=== PATIENT | female | born 1950 | race Caucasian/White ===

== ENCOUNTER 2016-11-13 13:31 | Inpatient (IN) | payer MEDICARE, OTHER ==
[~2016-11-13] VITALS: Ht 180.3 cm; Wt 73.6 kg
[2016-11-13 14:09] LABS: BASOPHILS 0.6 % (0.0-2.0); EOSINOPHILS 0.9 % (0-7); HEMOGLOBIN 15.2 g/dL (12-16); IMMATURE GRANULOCYTES 0.2 % (0-5); LYMPHOCYTES 31.6 % (15-50); MCV 90.7 fL (80.0-100.0); MEAN PLATELET VOLUME 9.7 fL (7.4-10.4); MONOCYTES 9.4 % (2-11); NEUTROPHILS 57.3 % (40-80); PLATELET COUNT 222 10x3/uL (130-400); RBC 5.07 10x6/uL (4.00-5.40); RDW 13.4 % (11.5-14.5); WBC 6.6 10x3/uL (4.8-10.8)
[2016-11-13 14:39] LABS: ALBUMIN 3.9 g/dL (3.4-5.0); ANION GAP 12.3 mmol/L (8-16); APPEARANCE CLEAR (CLEAR); BACTERIA MODERATE /hpf (NONE SEEN); BILIRUBIN NEGATIVE (NEGATIVE); BILIRUBIN - DIRECT 0.09 mg/dL (0.00-0.30); BILIRUBIN - INDIRECT 0.25 mg/dL (0.00-1.00); BILIRUBIN - TOTAL 0.34 mg/dL (0.2-1.3); CALCIUM 9.2 mg/dL (8.5-10.1); CARBON DIOXIDE 30.7 mmol/L (21.0-32.0); COLOR DK YELLOW (YELLOW); EPITHELIAL CELLS 0-5 /hpf (0-5); GLUCOSE NEGATIVE (NEGATIVE); KETONE NEGATIVE (NEGATIVE); LEUKOCYTE ESTERASE 1+ (NEGATIVE); MUCUS >1+ /lpf (NONE SEEN); NITRITE NEGATIVE (NEGATIVE); PROTEIN NEGATIVE (NEGATIVE); PROTEIN - SERUM 7.2 g/dL (6.4-8.2); RED CELLS - URINE 0-5 /hpf (0-5); SPECIFIC GRAVITY 1.025 (1.005-1.020); T4 THYROXIN - FREE 0.86 ng/dL (0.76-1.46); THYROID STIMULATING HORMONE 2.58 uIU/mL (0.36-3.74); UROBILINOGEN NORMAL (NORMAL); WHITE CELLS - URINE 0-5 /hpf (0-5)
--- NOTE | 2016-11-13 14:50 | NUR ---
ALERT AND ORIENTED X4. DENIES SOB OR PAIN. VERY TEARFUL. AMBULATORY. GAIT STEADY. REFUSE SCDs. IV SITED RT HAND 22G SUCCESSFUL 1sT ATTEMPT. CONTINUE ADMISSION PROCESS. BED LOCKED AND LOW. CALL LIGHT IN REACH. TWO SIDERAILS UP.
[2016-11-13] MEDS ORDERED: ESTRACE1 MG PO (14:58)
[2016-11-13] MEDS ORDERED: ZOCOR5 MG PO (14:59)
[2016-11-13] MEDS ORDERED: CETIRIZINE HCL5 MG PO (15:00)
[2016-11-13] MEDS ORDERED: BUPROPION HCL100 MG PO (15:01)
[2016-11-13] MEDS ORDERED: GEODON40 MG PO (15:05)
[2016-11-13] MEDS ORDERED: ZANTAC150 MG PO (15:06)
[2016-11-13] MEDS ORDERED: ATIVAN0.5 MG PO (15:07)
[2016-11-13] MEDS ORDERED: MELATONIN 3 MG1 TAB PO (15:08)
[2016-11-13 16:00] VITALS: BP 137/73
[2016-11-13 17:50] VITALS: BP 137/73; Ht 180.3 cm; Wt 73.6 kg
[2016-11-13 20:00] VITALS: BP 137/72
[2016-11-14] VITALS: BP 130/68
[2016-11-14 04:00] VITALS: BP 116/62
--- NOTE | 2016-11-14 05:52 | NUR ---
NURSE ROUNDS 22:00 - PT LYING IN BED ON LEFT SIDE, DARK ROOM, TEARFUL, EMOTIONAL, CRYING UNCONTROLLABLY. PT IS ALERT, ORIENTED, DENIES ANY ACUTE NEEDS, DENIES SUICIDAL IDEATIONS AT THIS TIME, AND VERBALLY PROMISES ME THAT SHE HAS NO INTENTIONS OF HURTING HERSELF AND PROMISES ME THAT SHE WILL NOT DO ANY HARM TO HERSELF. CONTINUE TO MONITOR CLOSELY.
[2016-11-14 08:54] VITALS: BP 116/51
[2016-11-14 12:15] VITALS: BP 124/76
[2016-11-14 16:08] VITALS: BP 156/78
[2016-11-14 21:18] VITALS: BP 138/81
--- NOTE | 2016-11-15 00:07 | NUR ---
NURSE ROUNDS 22:00 - PT AWAKE, ALERT, ORIENTED, SITTING UP IN BED, LIGHT ON, TV ON, PUZZLE BOOK IN HAND. PT SMILED WHEN I ENTERED, AND HAD SEVERAL QUESTIONS ABOUT HER NEW TX PLAN. WE DISCUSSED HER NEW MEDICATIONS, THE IMPORTANCE OF BEING CONSISTENT WITH TAKING THEM AT THE SAME TIME EACH DAY, COMPLYING WITH OUTPT TX, INCLUDING WEEKLY LAB X 1 MONTH UNTIL THERAPEUTIC LITHIUM LEVEL IS ACHIEVED. WE DISCUSSED DR. GARCIA OUTPT PLAN IN WHICH SHE WAS PLEASED WITH AND PT STATES THAT SHE IS ALREADY FEELING BETTER SINCE BEGINNING THE NEW MEDICATIONS. PT STATES SHE HAS HAD ONLY ONE TEARFUL EPISODE TODAY AND THAT WAS WHEN SHE WAS TALKING WITH DR. BURGOS. PT DENIES ANY NEEDS. CONTINUE TO MONITOR CLOSELY. I SPENT 20 MINUTES OR MORE DOING TEACHING ON THE NEW MEDICATIONS, OUTPT TX, AND ALL OTHER QUESTIONS PT HAD. I HAVE ENCOURAGED PT TO WRITE DOWN ANY QUESTIONS SHE MAY HAVE FOR HER PHYSICIANS FOR HER OUTPT FOLLOW UP.
[2016-11-15 01:12] VITALS: BP 130/67
--- NOTE | 2016-11-15 05:01 | NUR ---
PT LYING IN BED ON LEFT SIDE, EYES CLOSED, RESPIRATIONS EVEN AND UNLABORED. CONTINUE TO MONITOR CLOSELY. BED LOW, CALL LIGHT IN REACH, SIDE RAILS X 2, HOB FLAT.
[2016-11-15 05:21] VITALS: BP 143/59
--- NOTE | 2016-11-15 08:30 | NUR ---
RECEIVED PT REPORT. WILL CONTINUE PLAN OF CARE. NO OTHER NEEDS AT THIS TIME. WILL CONTINUE PLAN OF CARE.
[2016-11-15 08:55] VITALS: BP 114/59
--- NOTE | 2016-11-15 10:01 | NUR ---
PT IS ALERT. ASSESSMENT DONE PER FLOWSHEET. NO CO PAIN AT THIS TIME. WILL CONTINUE TO MONTIOR.
[2016-11-15 12:18] VITALS: BP 166/74
[2016-11-15] MEDS ORDERED: LITHIUM CARBON300 M3 PO (12:46)
[2016-11-15] MEDS ORDERED: LEXAPRO20 MG PO (12:49)
--- NOTE | 2016-11-15 13:33 | NUR ---
NO SS OF DISTRESS AT THIS TIME. WILL CONTINUE TO MONTIOR.
--- NOTE | 2016-11-15 14:41 | NUR ---
CM WAS NOTIFIED BY HILDA ROBB THAT PT WAS SEEN BY DR BURGOS AND HE ASKED THAT INTAKE APPOINTMENT BE MADE WITH DR VILLALOBOS PRIOR TO DC. CM PLACED CALL TO DR VILLALOBOS'S OFFICE AND OFFICE MESSAGE STATED THAT CLINIC IS CURRENTLY CLOSED AND WILL NOT BE OPEN AGAIN UNTIL SUNDAY AT 9:00 AM. IS THEREFORE UNABLE TO GET APPOINTMENT TIME AND DATE FOR PATIENT UNTIL Sunday11/17/16. CM PLACED CALL TO [facility] TO ATTEMPT TO SPEAK TO DR BURGOS REGARDING ABOVE. DR BURGOS WAS NOT ON CAMPUS AND PETRA SPOKE WITH YANICK MORENO RN MANAGER OF [facility] TO INFORM OF [facility]. YANICK SPOKE WITH DR BURGOS VIA TELEPHONE AND HE INFORMED YANICK MORENO THAT THE CLINIC PHONE NUMBER FOR DR VILLALOBOS MUST BE GIVEN TO PATIENT PRIOR TO HER DISCHARGE SO SHE HAS NUMBER TO CALL IN CASE OF EMERGENCY, AND THEN SHE CAN BE DISCHARGED. DR BURGOS ASKED THAT CM CALL PATIENT WITH HER INTAKE APPT. DATE/TIME WHEN DR VILLALOBOS'S OFFICE RETURNS CM'S CALL. PETRA PROVIDED PT WITH DR VILLALOBOS'S OFFICE PHONE NUMBER OF [phone] DR VILLALOBOS'S OFFICE MESSAGE PROVIDED EMERGENCY NUMBER FOR ON-CALL THERAPIST OF [phone] AND EMERGENCY NUMBER WAS ALSO GIVEN TO PATIENT PRIOR TO DISCHARGE. PETRA INFORMED PATIENT THAT SHE WILL BE NOTIFIED WHEN INTAKE APPT. IS KNOWN.
--- NOTE | 2016-11-15 15:18 | NUR ---
Patient Name: UZIEL GIORDANO Admission Status: Elective Accout number: [id number] Admission Date: 11-13-2016 : 1950 Admission Diagnosis:DEHYDRATION Attending: VALENTINE Current LOS: 2 Anticipated DC Date: 11-15-2016 Planned Disposition: Outpatient clinics\services (Programs) Primary Insurance: MEDICARE A & B PLANNED EXTERNAL PROVIDER: OUTPATIENT WITH DR. VILLALOBOS Discharge Planning Comments: * Is the patient Alert and Oriented? Yes 0 * How many steps to enter\exit or inside your home? 5-6 0 * PCP DR. NASSAR 0 * Pharmacy [facility] IN [place] 0 * Preadmission Environment Home with Family 0 * ADLs Independent 0 * Equipment None 0 * Other Equipment NO MEDICAL EQUIPMENT PROVIDER PREFERENCE 0 * List name and contact numbers for known caregivers / representatives who currently or will assist patient after discharge: FAUZIA GIORDANO, SPOUSE, 0 * Community resources currently utilized None 0 * Please name any agencies selected above. NONE 0 * Additional services required to return to the preadmission environment? Yes * Can the patient safely return to the preadmission environment? Yes 0 * Has this patient been hospitalized within the prior 30 days at any hospital? No 0 CM MET WITH PT IN ROOM TO DISCUSS DISCHARGE PLANNING AND NEEDS. PT REPORTS LIVING AT HOME INDEPENDENTLY WITH HER SPOUSE. PT HAS NO MEDICAL EQUIPMENT AND NO OUTSIDE SERVICES ASSISTING IN THE HOME. CM DISCUSSED AVAILABILITY OF HOME HEALTH, REHAB SERVICES AND MEDICAL EQUIPMENT. PT DENIES DISCHARGE NEEDS, REPORTS HER FRIEND WILL PICK HER UP FOR DISCHARGE HOME HER SPOUSE IS HOME AFTER HAVING SURGERY ON HIS TOE. IMPORTANT MESSAGE FROM MEDICARE PROVIDED AND EXPLAINED. CM DISCUSSED DOCTOR'S ORDER TO ARRANGE OUTPATIENT APPOINTMENT WITH DR. VILLALOBOS FOR PT TO FOLLOW UP. PT WAS AWARE OF THE DOCTORS RECOMMENDATION AND WILL FOLLOW UP DIRECTED. CM PROVIDED PT WITH DR. VILLALOBOS'S CLINIC ADDRESS AND PHONE NUMBER, RN PETRA CORTES WAS UNABLE TO MAKE THE APPOINTMENT TODAY DR. VILLALOBOS'S OFFICE IS CLOSED. PT TO BE CONTACTED BY PETRA OR DR. VILLALOBOS REGARDING OUTPATIENT APPOINTMENT. PT DENIES DISCHARGE NEEDS. Supervisor Network Control Operators: Adalberto Mcfarland
== END 2016-11-15 15:35 | disposition home or self-care (01) | DRG 641 ==
LOC: D.M2 13:31 → D.SDCHOLD 13:31 → D.M2 13:36
PROVIDERS: ADMIT Family Medicine
DX: E86.0 Dehydration (principal); F31.81 Bipolar II disorder

== ENCOUNTER 2017-04-17 11:00 | Outpatient (CLI) | payer MEDICARE, OTHER ==
[2016-11-13 17:50] VITALS: BMI 22.6
[~2017-04-17 11:00] MED LIST: ATIVAN0.5 MG PO; BUPROPION HCL100 MG PO; CETIRIZINE HCL5 MG PO; ESTRACE1 MG PO; GEODON40 MG PO; LEXAPRO20 MG PO; LITHIUM CARBON300 M3 PO; MELATONIN 3 MG1 TAB PO; ZANTAC150 MG PO; ZOCOR5 MG PO
== END 2017-04-17 11:42 ==
LOC: D.MAMMO 11:00
DX: Z12.31 Encounter for screening mammogram for malignant neoplasm of breast (principal)

== ENCOUNTER 2017-08-03 15:04 | Emergency (ER) | payer MEDICARE, OTHER ==
[2016-11-13 17:50] VITALS: BMI 22.6
[2017-08-03 16:50] LABS: BASOPHILS 0.2 % (0-2); EOSINOPHILS 0.1 % (0-7); HEMATOCRIT 41.2 % (36.0-48.0); IMMATURE GRANULOCYTES 0.2 % (0-5); LYMPHOCYTES 17.6 % (15-50); MCH 30.3 pg (26.0-34.0); MCV 89.2 fL (80.0-100.0); MONOCYTES 8.4 % (2-11); NEUTROPHILS 73.5 % (40-80); PLATELET COUNT 215 10x3/uL (130-400); RBC 4.62 10x6/uL (4.00-5.40); WBC 9.5 10x3/uL (4.8-10.8)
[2017-08-03 17:07] LABS: APTT 27.3 SECONDS (22.8-39.4); INR 0.99 (0.85-1.17)
[2017-08-03 17:13] LABS: ALBUMIN 3.5 g/dL (3.4-5.0); ANION GAP 10.3 mmol/L (8-16); BILIRUBIN - TOTAL 0.62 mg/dL (0.2-1.3); CALCIUM 8.9 mg/dL (8.5-10.1); CARBON DIOXIDE 29.4 mmol/L (21.0-32.0); CREATININE - SERUM 1.1 mg/dL (0.6-1.3); POTASSIUM - SERUM 3.7 mmol/L (3.5-5.1); PROTEIN - SERUM 6.7 g/dL (6.4-8.2)
== END 2017-08-03 16:57 | disposition home or self-care (01) ==
LOC: D.ER 15:04
PROVIDERS: Emergency Medicine
DX: K92.2 Gastrointestinal hemorrhage, unspecified (principal)

== ENCOUNTER → 2018-05-28 21:00 | Outpatient (CLI) | payer MEDICARE, OTHER ==
[2016-11-13 17:50] VITALS: BMI 22.6
== END | disposition home or self-care (01) ==
LOC: D.MAMMO 14:15
DX: Z12.31 Encounter for screening mammogram for malignant neoplasm of breast (principal)